=== PATIENT | male | born 1970 | race Caucasian/White ===

== ENCOUNTER 2016-07-23 16:26 | Inpatient (IN) | payer OTHER ==
[2016-07-23 17:06] LABS: BASOPHIL 0.3 % (0-2); EOSINOPHIL 0.8 % (0-5); HCT 50.5 % (42.0-52.0); HGB 17.9 g/dl (13.2-18.0); LYMPHOCYTE 5.8 % (15-48); MCH 36.3 pg (25.0-31.0); MCHC 35.4 g/dL (32.0-36.0); MCV 102.4 fL (78.0-100.0); MONOCYTE 6.6 % (0-12); MPV 9.6 fL (6.0-9.5); NEUTROPHIL 86.5 % (41-80); PLT 221 K/uL (150-400); RBC 4.93 M/uL (4.70-6.00); RDW 14.9 % (11.5-14.0); WBC 12.2 K/uL (4.0-10.5)
[2016-07-23 17:08] LABS: BILIRUBIN 1+ mg/dL (NEGATIVE); BLOOD TRACE-INTACT Ery/uL (NEGATIVE); CLARITY CLEAR (CLEAR); COLOR YELLOW (YELLOW); GLUCOSE (U) NORMAL (NORMAL); KETONE (U) 1+ (SMALL) mg/dL (NEGATIVE); LEUKOCYTES NEGATIVE Leu/uL (NEGATIVE); NITRITE NEGATIVE (NEGATIVE); PROTEIN NEGATIVE (NEGATIVE)
[2016-07-23 17:16] LABS: BACTERIA TRACE; MUCOUS MODERATE
[2016-07-23 17:19] LABS: INR 2.12 (0.9-1.2); PROTHROMBIN TIME 23.1 SECONDS (11.7-14.0); PTT 39.4 SECONDS (23.2-31.4)
[2016-07-23 17:23] LABS: LACTIC ACID 1.2 mmol/L (0.5-2.2)
[2016-07-23 17:25] LABS: BILIRUBIN - TOTAL 1.3 mg/dL (0.1-1.0); CREATININE 0.7 mg/dL (0.7-1.2); GLOBULIN (CALCULATION) 2.6 g/dL (2.2-4.2); POTASSIUM 3.7 mmol/L (3.5-5.1); TOTAL PROTEIN 6.6 g/dL (6.4-8.3)
[2016-07-24 04:06] LABS: BASOPHIL 0.2 % (0-2); EOSINOPHIL 1.9 % (0-5); HCT 46.1 % (42.0-52.0); HGB 16.2 g/dl (13.2-18.0); LYMPHOCYTE 7.2 % (15-48); MCH 36.3 pg (25.0-31.0); MCHC 35.1 g/dL (32.0-36.0); MCV 103.4 fL (78.0-100.0); MPV 9.8 fL (6.0-9.5); NEUTROPHIL 82.7 % (41-80); PLT 225 K/uL (150-400); RBC 4.46 M/uL (4.70-6.00); RDW 14.9 % (11.5-14.0); WBC 9.9 K/uL (4.0-10.5)
[2016-07-24 04:29] LABS: ALBUMIN 3.3 g/dL (3.5-5.0); BILIRUBIN - TOTAL 1.1 mg/dL (0.1-1.0); CREATININE 0.7 mg/dL (0.7-1.2); POTASSIUM 3.7 mmol/L (3.5-5.1); TOTAL PROTEIN 5.3 g/dL (6.4-8.3)
[2016-07-25 04:05] LABS: BASOPHIL 0.4 % (0-2); EOSINOPHIL 2.1 % (0-5); HCT 45.9 % (42.0-52.0); LYMPHOCYTE 10.3 % (15-48); MCH 35.9 pg (25.0-31.0); MCHC 34.9 g/dL (32.0-36.0); MCV 102.9 fL (78.0-100.0); MONOCYTE 10.6 % (0-12); MPV 9.8 fL (6.0-9.5); NEUTROPHIL 76.6 % (41-80); PLT 215 K/uL (150-400); RBC 4.46 M/uL (4.70-6.00); RDW 14.4 % (11.5-14.0); WBC 7.5 K/uL (4.0-10.5)
[2016-07-25 04:18] LABS: INR 1.64 (0.9-1.2); PROTHROMBIN TIME 18.9 SECONDS (11.7-14.0)
[2016-07-25 04:29] LABS: ALBUMIN 3.3 g/dL (3.5-5.0); BILIRUBIN - TOTAL 1.3 mg/dL (0.1-1.0); CREATININE 0.7 mg/dL (0.7-1.2); GLOBULIN (CALCULATION) 1.9 g/dL (2.2-4.2); MAGNESIUM 1.58 mg/dL (1.40-2.10); POTASSIUM 3.9 mmol/L (3.5-5.1); TOTAL PROTEIN 5.2 g/dL (6.4-8.3)
[2016-07-26 05:15] LABS: BASOPHIL 0.1 % (0-2); EOSINOPHIL 0.4 % (0-5); HCT 49.6 % (42.0-52.0); HGB 17.4 g/dl (13.2-18.0); LYMPHOCYTE 5.1 % (15-48); MCH 35.8 pg (25.0-31.0); MCHC 35.1 g/dL (32.0-36.0); MCV 102.1 fL (78.0-100.0); MONOCYTE 11.9 % (0-12); MPV 10.1 fL (6.0-9.5); NEUTROPHIL 82.5 % (41-80); PLT 218 K/uL (150-400); RBC 4.86 M/uL (4.70-6.00); RDW 14.3 % (11.5-14.0)
[2016-07-26 05:31] LABS: ALBUMIN 3.8 g/dL (3.5-5.0); CREATININE 0.7 mg/dL (0.7-1.2); GLOBULIN (CALCULATION) 2.2 g/dL (2.2-4.2); MAGNESIUM 1.6 mg/dL (1.40-2.10); POTASSIUM 4.3 mmol/L (3.5-5.1)
[2016-07-27 05:19] LABS: BASOPHIL 0.1 % (0-2); EOSINOPHIL 0.4 % (0-5); HCT 49.3 % (42.0-52.0); HGB 17.5 g/dl (13.2-18.0); LYMPHOCYTE 4.8 % (15-48); MCH 36.4 pg (25.0-31.0); MCHC 35.5 g/dL (32.0-36.0); MCV 102.5 fL (78.0-100.0); MONOCYTE 13.7 % (0-12); MPV 10.1 fL (6.0-9.5); PLT 208 K/uL (150-400); RBC 4.81 M/uL (4.70-6.00); RDW 14.3 % (11.5-14.0); WBC 7.7 K/uL (4.0-10.5)
[2016-07-27 05:51] LABS: INR 1.11 (0.9-1.2); PROTHROMBIN TIME 13.9 SECONDS (11.7-14.0)
[2016-07-27 06:03] LABS: ALBUMIN 3.9 g/dL (3.5-5.0); BILIRUBIN - TOTAL 7.7 mg/dL (0.1-1.0); CREATININE 0.8 mg/dL (0.7-1.2); GLOBULIN (CALCULATION) 2.2 g/dL (2.2-4.2); MAGNESIUM 1.88 mg/dL (1.40-2.10); POTASSIUM 4.2 mmol/L (3.5-5.1); TOTAL PROTEIN 6.1 g/dL (6.4-8.3)
--- NOTE | 2016-07-27 10:15 | NUR ---
RPT GIVEN TO BLAIR AT [facility] 4M;[facility] CALLED PER [employer] PILOT HELPER.
--- NOTE | 2016-07-27 11:27 | NUR ---
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 UNABLE TO WASTE IN [facility], PHARMACY CALLED & NOTIFIED. PT UPON DISCHARGE HAD USED TOTAL OF 3.2MG. WASTED 5ML.
== END 2016-07-27 11:11 | disposition other institution (70) | DRG 439 ==
LOC: FER 16:26 → FMS 19:17 → FTCU 07-25 11:32
PROVIDERS: Emergency Medicine; ADMIT Internal Medicine
DX: K85.90 Acute pancreatitis without necrosis or infection, unspecified (principal); K86.3 Pseudocyst of pancreas; I48.0 Paroxysmal atrial fibrillation; I10 Essential (primary) hypertension; E80.6 Other disorders of bilirubin metabolism; K80.50 Calculus of bile duct without cholangitis or cholecystitis without obstruction; F10.10 Alcohol abuse, uncomplicated; Z79.01 Long term (current) use of anticoagulants
CPT/HCPCS: 36415; 74181; 80053; 80061; 81001; 82150; 83605; 83690; 83735; 85025; 85610; 85730; 86301; C9113; J1170; J2270; J2405; J3360; J3411; J3475; Q9967